=== PATIENT | female | born 1970 | race Caucasian/White ===

== ENCOUNTER → 2021-11-27 | Outpatient (CLI) | payer BC ==
[~2021-11-27] MED LIST: AMLODIPINE BESYL5 MG PO; FLEXERIL 10 MG10 MG PO; IBUPROFEN800 MG PO; KEFLEX500 MG PO; PAROXETINE HCL20 MG PO; PERCOCET 5-3251 EACH PO; POTASSIUM GLUCO99 MG PO; PREVACID30 MG PO; VALSARTAN-HCTZ1 EAC1 PO; VITAMIN C 500500 MG PO
== END ==
LOC: SLEEP 13:28
DX: G47.33 Obstructive sleep apnea (adult) (pediatric) (principal); G25.81 Restless legs syndrome
CPT/HCPCS: 95810